=== PATIENT | female | born 2000 | race Two or more races ===

== ENCOUNTER 2022-05-02 19:31 | Emergency (ER) | payer MEDICAID ==
[~2022-05-02] VITALS: Ht 165.1 cm; Wt 43.1 kg
[2022-05-02] MEDS ORDERED: LIDOCAINE 1% HCL (LOCAL ANESTH.) INJ 20ML MDV ID ONE (22:45)
[2022-05-02 23:30] VITALS: BP 122/87
== END 2022-05-03 00:53 | disposition home or self-care (01) ==
LOC: ER 19:31
DX: S61.412A Laceration without foreign body of left hand, initial encounter (principal); W22.8XXA Striking against or struck by other objects, initial encounter; Y93.89 Activity, other specified; Y92.89 Other specified places as the place of occurrence of the external cause; Y99.8 Other external cause status
CPT/HCPCS: 12002; 73130; 99283; J2001